=== PATIENT | male | born 1960 | race Caucasian/White ===

== ENCOUNTER → 2018-12-09 | Outpatient (CLI) | payer BC ==
--- NOTE | 2018-12-09 14:06 | US ---
EXAMINATION TYPE: US kidneys/renal and bladder DATE OF EXAM: 12/09/2018 COMPARISON: NONE CLINICAL HISTORY: R31.9 HEMATURIA. Microscopic hematuria EXAM MEASUREMENTS: Right Kidney: 12.0 x 4.5 x 5.1 cm Left Kidney: 11.8 x 6.2 x 5.1 cm Post Void Residual Volume: 23.75 mL Right Kidney: cystic area mid = 0.9 x 0.8 x 0.9cm Left Kidney: cystic area lateral = 0.8 x 0.8 x 1.0cm Bladder: appears wnl Bilateral Jets seen: yes Normal Post Void Residual: no Prostate appearing prominent = 4.8cm There is no evidence for hydronephrosis at this point in time. No nephrolithiasis is seen. No oly s are identified. The urinary bladder is anechoic. Bilateral ureteral jets are seen. IMPRESSION: Small simple appearing cysts noted bilaterally.
== END | disposition home or self-care (01) ==
LOC: RADUSWWP 13:25
PROVIDERS: ATTEND Family Medicine
DX: N28.1 Cyst of kidney, acquired (principal); R31.9 Hematuria, unspecified
CPT/HCPCS: 76770

== ENCOUNTER → 2020-11-15 | Outpatient (CLI) | payer BC ==
--- NOTE | 2020-11-16 02:08 | MR ---
EXAMINATION TYPE: MR lumbar spine wo con DATE OF EXAM: 11/15/2020 COMPARISON: None HISTORY: LBP, RLE radic Multiplanar multiecho imaging of the lumbar spine was performed without contrast. Vertebra have fairly normal alignment. There is disc space narrowing at L5-S1. There is mild posterio r disc bulging and herniation at L5-S1. There is no compression fracture. There is mild right side L5 -S1 neural foraminal narrowing due to disc space narrowing and facet arthropathy. I see no bony destr uctive process. There is no lumbar paraspinal mass. Sacroiliac joints are intact. There is moderate a nterior L5-S1 lumbar disc herniation. IMPRESSION: Spondylotic changes mainly at L5-S1 with anterior and posterior lumbar disc herniation. No spinal kathrin nosis. Mild right side L5-S1 neural foraminal narrowing.
== END | disposition home or self-care (01) ==
LOC: RADMRIMAIN 20:23
PROVIDERS: ATTEND Family Medicine
DX: M48.07 Spinal stenosis, lumbosacral region (principal); M51.27 Other intervertebral disc displacement, lumbosacral region; M47.27 Other spondylosis with radiculopathy, lumbosacral region
CPT/HCPCS: 72148

== ENCOUNTER 2025-05-12 05:42 | Day surgery (SDC) | payer BC ==
[2025-05-08 13:01] VITALS: BMI 25.4
[2025-05-12] MEDS ORDERED: LIDOCAINE 1% (10MG/ML) FOR IV START INTRADERMA PRN (06:09)
[2025-05-12] MEDS: IV FLUID CONTINUATION 1,000 ML IV ONE (06:15)
[2025-05-12] MEDS: LACTATED RINGERS 1,000 ML IV SCH (06:28)
[2025-05-12 06:31] VITALS: TEMP 97
[2025-05-12] MEDS: ONDANSETRON 4 MG/2 ML VIAL IVP PRN (06:51)
[2025-05-12] MEDS ORDERED: PROPOFOL 10 MG/ML 20 ML VIAL IV ONE (07:00)
--- NOTE | 2025-05-12 07:28 | P.PCN ---
Date of Procedure: 05/12/25 Procedure(s) Performed: BRIEF HISTORY: Patient is a 64-year-old pleasant white male scheduled for an elective colonoscopy as a part of screening for colon cancer PROCEDURE PERFORMED: Colonoscopy with snare polypectomy. PREOPERATIVE DIAGNOSIS: Screening for colon cancer. IV sedation per Anesthesia. PROCEDURE: After informed consent was obtained, the patient, was brought into the endoscopy unit. IV sedation was administered by Anesthesia under continuous monitoring. Digital rectal examination was normal. Initially the Olympus CF-160 flexible video colonoscope was then inserted in the rectum, gradually advanced into the cecum without any difficulty. Careful examination was performed as the scope was gradually being withdrawn. Ileocecal valve and the appendiceal orifice were visualized and appeared normal. Prep was excellent. Mucosa of the cecum, had a 1 cm polyp that was removed by snare polypectomy. Rest of the ascending colon, appeared normal. The transverse colon there is a 7 mm polyp removed by cold snare polypectomy. In the sigmoid colon there was a 1 cm polyp removed by snare polypectomy. Rest of the transverse colon, descending colon, sigmoid colon, and rectum appeared normal. In the rectum there was a 5 mm x 2 polyp removed by snare polypectomy. Retroflexion was performed in the rectum and no lesions were seen. The patient tolerated the procedure well. IMPRESSION: Regarding multiple 1 cm cecal polyp status post snare polypectomy 7 mm transverse colon polyp status post cold snare polypectomy 1 cm sigmoid colon polyp status post polypectomy 5 mm rectal polyp status post snare polypectomy. RECOMMENDATIONS: Findings of this examination were discussed with the patient as well as his family. He was advised to follow with the biopsy results. If the biopsy reveals adenoma he can have repeat colonoscopy in 3 years..
[2025-05-12 07:48] VITALS: BP 106/69; PULSE 63; RESP 17
== END 2025-05-12 08:29 | disposition home or self-care (01) ==
LOC: ORWHC2ENDO 05:42
PROVIDERS: ATTEND Internal Medicine Gastroenterology
DX: Z12.11 Encounter for screening for malignant neoplasm of colon (principal); D12.3 Benign neoplasm of transverse colon; D12.0 Benign neoplasm of cecum; I10 Essential (primary) hypertension; E78.5 Hyperlipidemia, unspecified; M10.9 Gout, unspecified; G89.29 Other chronic pain; Z87.891 Personal history of nicotine dependence; Z79.899 Other long term (current) drug therapy
CPT/HCPCS: 88305; 45385; J2405; J2704